=== PATIENT | male | born 1990 | race Two or more races ===

== ENCOUNTER 2017-04-05 17:13 | Emergency (ER) | payer BC, MEDICAID ==
[~2017-04-05] VITALS: Ht 172.7 cm; Wt 77.1 kg
[2017-04-05 17:40] VITALS: BP 124/70
--- NOTE | 2017-04-05 17:41 | NUR ---
Patient discharged to home in stable conditon. Written and verbal after care instructions given. Patient verbalizes understanding of instructions.
== END 2017-04-05 17:41 | disposition home or self-care (01) ==
LOC: ER 17:14
DX: B02.9 Zoster without complications (principal); M54.5 Low back pain
CPT/HCPCS: 99283; A4663

== ENCOUNTER 2018-04-02 17:25 | Emergency (ER) | payer BC, OTHER ==
[~2018-04-02] VITALS: Ht 182.9 cm; Wt 79.4 kg
--- NOTE | 2018-04-02 17:35 | NUR ---
Pt was d/c by with verbal ACI.
== END 2018-04-02 17:36 | disposition home or self-care (01) ==
LOC: ER 17:27
DX: K08.89 Other specified disorders of teeth and supporting structures (principal)
CPT/HCPCS: A4663